=== PATIENT | female | born 1995 | race Two or more races ===

== ENCOUNTER 2025-07-08 17:28 | Emergency (ER) | payer OTHER ==
[~2025-07-08] VITALS: Ht 162.6 cm; Wt 62.6 kg
[2025-07-08 19:33] LABS: BASO % 0.5 % (0.1-1.2); EOS # 0.04 (0.04-0.54); EOS % 0.5 % (0.7-7.0); LYMPH # 1.79 (1.18-3.74); LYMPH % 20.9 % (19.3-53.1); MEAN PLATELET VOLUME 9.10 fl (9.4-12.4); MONO # 0.82 (0.24-0.82); MONO % 9.6 % (4.7-12.5); NEUT # 5.85 (1.56-6.13); NEUT % 68.3 % (34.0-71.1); RED CELL DISTRIBUTION WIDTH 11.6 % (11.6-14.4)
[2025-07-08] MEDS ORDERED: 0.9 % SODIUM CHLORIDE 1,000 ML IV STA (19:54)
[2025-07-08 20:02] LABS: INR 0.98
[2025-07-08 20:21] LABS: BUN CREA RATIO 22.0 (7.0-25.0); CREATININE SERUM 0.68 mg/dL (0.55-1.02); GFR 100.92; GLUCOSE FASTING 77.0 mg/dL (65-100); OSMOLALITY SERUM 283.0 MOSM/KG (275-295)
[2025-07-08 20:41] LABS: HCG QUANTITATIVE 83058.0 mUI/mL (1-3)
== END 2025-07-08 22:15 | disposition home or self-care (01) ==
LOC: ER 17:44
DX: O20.8 Other hemorrhage in early pregnancy (principal); Z3A.01 Less than 8 weeks gestation of pregnancy; N92.0 Excessive and frequent menstruation with regular cycle; Z91.013 Allergy to seafood

== ENCOUNTER 2025-10-26 11:49 | Outpatient (CLI) | payer OTHER | END 2025-10-26 11:50 | disposition home or self-care (01) | LOC: PRENATAL 11:49 | PROVIDERS: ATTEND Obstetrics & Gynecology Maternal & Fetal Medicine | DX: O44.02 Complete placenta previa NOS or without hemorrhage, second trimester (principal); Z3A.23 23 weeks gestation of pregnancy ==